=== PATIENT | female | born 1945 | race Caucasian/White ===

== ENCOUNTER 2019-01-04 20:45 | Inpatient (IN) | payer OTHER ==
[~2019-01-04] VITALS: Ht 167.6 cm; Wt 69.9 kg
--- NOTE | 2019-01-04 21:24 | NUR ---
X-RAY DONE AT BEDSIDE.
[2019-01-04 21:33] LABS: BASOPHIL % 0.2 % (0-2); RED CELL DISTRIBUTION WIDTH 13.2 % (11.5-14.5)
[2019-01-04 21:34] LABS: PLATELET COUNT 450 x10^3mcL (130-400)
[2019-01-04 21:37] LABS: CALCIUM 9.2 mg/dL (8.5-10.1); CARBON DIOXIDE 29.3 mmol/L (21-32); CHLORIDE SERUM 101 mmol/L (98-107); CREATININE SERUM 0.7 mg/dL (0.6-1.0); GLUCOSE SERUM 108 mg/dL (74-106); POTASSIUM SERUM 3.8 mmol/L (3.5-5.1); SODIUM SERUM 137 mmol/L (136-145)
[2019-01-04 21:48] LABS: ALBUMIN 2.9 g/dL (3.4-5.0); ALKALINE PHOSPHATASE 83 U/L (46-116); ALT/SGPT 43 U/L (14-59); AST/SGOT 38 U/L (15-37); BILIRUBIN TOTAL 0.41 mg/dL (0.20-1.00); TOTAL PROTEIN, SERUM 6.3 g/dL (6.4-8.2)
--- NOTE | 2019-01-04 22:02 | NUR ---
PHARMACIST CONTACTED ABOUT [facility] AND WILL DELIVER IT TO ED.
--- NOTE | 2019-01-04 22:25 | NUR ---
PT AAOX3, VSS, SPEAKS IN FULL CLEAR SENTENCES, BREATHING EASY AND UNLABORED. ABLE TO MAKE NEEDS KNOWN. MEDICATED PER ERP'S ORDERS. FOLLOWS SIMPLE COMMANDS. RESTING COMFORTABLY IN BED. NO OBVIOUS SIGNS OF DISTRESS AT THIS TIME. WILL CONTINUE TO MONITOR.
--- NOTE | 2019-01-04 23:02 | NUR ---
PT ADMITTED. REPORT GIVEN TO DONAL JONES. OPPORTUNITY GIVEN TO ASK QUESTIONS. PT BEING TRANSPORTED TO FLOOR. PT'S CARE COMPLETED BY THIS RN AT THIS TIME.
[2019-01-04 23:38] LABS: CHOLESTEROL/HDL RATIO 4.4; MAGNESIUM 1.6 mg/dL (1.8-2.4); PHOSPHOROUS 3.5 mg/dL (2.5-4.9)
[2019-01-04] MEDS ORDERED: MELOXICAM7.5 M1 PO (23:59)
[2019-01-04] MEDS ORDERED: ATENOLOL100 MG PO (23:59)
[2019-01-04] MEDS ORDERED: BAYER ASPIRIN C81 MG PO (23:59)
[2019-01-05] VITALS (8 sets, daily range): BP systolic 88–110; BP diastolic 44–62; Ht 167.6 cm; Wt 69.9 kg
[2019-01-05] MEDS ORDERED: PEPCID20 MG PO (00:04)
[2019-01-05] MEDS ORDERED: ZETIA10 M1 PO (00:04)
--- NOTE | 2019-01-05 00:30 | NUR ---
RECEIVED PT FROM ER VIA [facility] ACCOMPANIED WITH NURSE AND EMT, PT SEEN, AAO X 4, VERY VERBALLY RESPONSIVE, DENIES HEADACHE OR DIZZINESS, LUNG SOUNDS CLEAR, NOTED SOB UPON EXERTION, ON O2 2L VIA NC, NO RESP DISTRESS NOTED WHILE RESTING IN BED, ON TELE#28 100% PACED, C/O OF LEFT SIDE CHEST PAIN, PULSES PALPABLE, NO EDEMA NOTED, GENERALIZED WEAKNESS, LLE WEAKNESS DUE TO CVA, PULSES PALPABLE, NO EDEMA NOTED, ABD OBESE WITH ACTIVE BS, NO BM AT THIS TIME, INCONTINENT AT TIMES, SKIN WARM, DRY AND INTACT, ECCHYMOSIS NOTED TO BUE, NO DISTRESS NOTED, WILL KEEP TO MONITOR.
[2019-01-05] MEDS ORDERED: LOV40I SQ (01:05)
[2019-01-05] MEDS ORDERED: LIDODERM51 TOP (01:06)
[2019-01-05] MEDS ORDERED: TRAMADOL HCL50 MG PO (01:16)
--- NOTE | 2019-01-05 02:33 | NUR ---
PT REFUSED BLOOD DRAW. DR. CERVANTES MADE AWARE.
--- NOTE | 2019-01-05 04:17 | NUR ---
PT SEEN SLEEPING IN BED. NO ACUTE DISTRESS NOTED. BREATHING IS EVEN AND UNLABORED. WILL CONTINUE TO MONITOR.
--- NOTE | 2019-01-05 05:36 | NUR ---
PT HAD A BOWEL MOVEMENT. CLEANED UP PT WITH MATTE CUTTER. NO ACUTE DISTRESS NOTED. BREATHING IS EVEN AND UNLABORED. IV IS PATENT AND RUNNING NS AT 70CC/HR. WILL ENDORSE CARE TO DAYSHIFT NURSE.
[2019-01-05 06:21] LABS: BASOPHIL % 0.2 % (0-2); PLATELET COUNT 369 x10^3mcL (130-400)
[2019-01-05 06:39] LABS: CARBON DIOXIDE 28.1 mmol/L (21-32); CHLORIDE SERUM 102 mmol/L (98-107); CREATININE SERUM 0.6 mg/dL (0.6-1.0); GLUCOSE SERUM 89 mg/dL (74-106); MAGNESIUM 1.9 mg/dL (1.8-2.4); POTASSIUM SERUM 3.8 mmol/L (3.5-5.1); SODIUM SERUM 138 mmol/L (136-145)
--- NOTE | 2019-01-05 07:30 | NUR ---
PT ENDORSE TO ME THIS AM. LAYING IN BED RESTING. AA/O X3 PERIODS OF FORGETFULNESS. BREATING EVEN AND UNLABORED ON 2L NC, NO ACUTE RESP DISTRESS OR SOB NOTED. TELE 28 PACED. HR 94. BOWEL SOUNDS ACTIVE IN ALL FOUR QUADS. LAST BM 01/05. GEN WEAKNESS DUE TO L SIDE WEAKNESS/ KNOWS TO CALL FOR ASSIST. IV TO THE LAC INTACT AND PATENT, INFUSING AT 70ML/HR. NO REDNESS OR SWELLING NOTED. CALL LIGHT IN REACH. BED IN LOW POSITION. WILL CONTINUE PLAN OF CARE.
--- NOTE | 2019-01-05 07:55 | NUR ---
Nutrition Note: NSG trigger received for "N/V/D >3 days" on 01/05/19. Pt. admitted with Non-Stemi CP associated with nausea x 1 day per H and P documentations. Does not meet high risk criteria at this time, and will be assessed as low risk with initial assessment due on 01/12/19. Consult RD PRN.
--- NOTE | 2019-01-05 11:12 | NUR ---
DR. BURGOS AT BEDSIDE. MEDICATED PER EMAR FOR GEN BACK PAIN 03/26. WILL CONTINUE PLAN OF CARE.
--- NOTE | 2019-01-05 14:15 | NUR ---
LAB CALLED TROP [phone] DR. KNOX MADE AWARE.
--- NOTE | 2019-01-05 14:20 | NUR ---
PT SITTING IN BED WITH FAMILY AT BEDSIDE. DENIES ANY CP OR PRESSURE. CALL LIGHT IN REACH. BED IN LOW POSITION. WILL CONTINUE PLAN OF CARE.
[2019-01-05] MEDS ORDERED: ATENOLOL25 MG PO (14:32)
--- NOTE | 2019-01-05 17:19 | NUR ---
PT LAYING IN BED RESTING. DENIES ANY CP OR PRESSURE. IV TO THE LAC INTACT AND PATENT, INFUSING AT 70ML/HR, NO REDNESS OR SWELLING NOTED. CALL LIGHT IN REACH. BED IN LOW POSITION. WILL CONTINUE PLAN OF CARE.
[2019-01-05] MEDS ORDERED: TOPROL XL25 MG PO (17:44)
[2019-01-05] MEDS ORDERED: ASPIRIN ADULT L81 M5 PO (17:44)
--- NOTE | 2019-01-05 18:35 | NUR ---
NO ACUTE CHANGES AT THIS TIME/ NO ACUTE RESP DISTRESS OR SOB NOTED. REMAINS ON 2L NC SATING AT 97%. DENIES ANY CP OR PRESSURE. IV TO THE LAC INTACT AND PATENT/ INFUSING AT 70 ML/HR OF NS. CURRENTLY WAITING ON BED FROM [facility] FOR CARDIC CATH TOMORROW. WILL ENDORSE TO INCOMING RN.
--- NOTE | 2019-01-05 19:17 | NUR ---
PT SEEN, RESTING IN BED, ALERT AND ORIENTED X 3 WITH PERIODS OF CONFUSION AND FORGETFUL, DENIES HEADACHE OR DIZZINESS, BREATHING EVEN AND UNLABORED, ON O2 2L VIA NC, LUNG SOUNDS DIMINISHED, MILD SOB ON EXERTION, ON TELE#28 100% PACED, DENIES CHEST PAIN, IVF INFUSING WELL, PULSES PALPABLE, NO EDEMA NOTED, GENERALIZED WEAKNESS, ABD SOFT WITH ACTIVE BS, NO BM AT THIS TIME, INCONTINENT, FALL PRECAUTION IN PLACE, NO DISTRESS NOTED, WILL KEEP TO MONITOR.
--- NOTE | 2019-01-05 19:58 | NUR ---
DR CERVANTES AT BEDSIDE WITH PT PER PT'S REQUEST.
--- NOTE | 2019-01-05 23:27 | NUR ---
ROUNDS MADE, PT ASLEEP AND APPEARS COMFORTABLE, BREATHING EVEN AND UNLABORED ON O2 2L VIA NC WITH NO RESP DISTRESS NOTED, IVF INFUSING WELL, WILL CONTINUE TO MONITOR.
--- NOTE | 2019-01-06 00:30 | NUR ---
PT HAD AN EPISODE OF LOOSE STOOL, GOOD MARVEL-CARE GIVEN.
[2019-01-06 05:19] VITALS: BP 115/48
--- NOTE | 2019-01-06 06:02 | NUR ---
PT AWAKE AND RESTING IN BED, SLEPT ON AND OFF WHOLE NIGHT, IVF INFUSING WELL, INCONTINENT OF URINE AND STOOL, ON TELE#28 100% PACED, NPO AFTER MN FOR 1330 CARDIAC CATH AT [facility], PT IS VERY NEEDY WHILE AWAKE, REPETITVE DURING CONVERSATION, PENDING TRANSFER TO [facility].
--- NOTE | 2019-01-06 06:33 | NUR ---
SPOKE WITH ZEHRA MURRAY REGARDING PT'S TRANSFER STATUS, PER BEN MUIR NO TELE BEDS AVAILABLE AT THIS TIME.
[2019-01-06 07:05] LABS: BASOPHIL % 0.3 % (0-2); PLATELET COUNT 370 x10^3mcL (130-400); RED CELL DISTRIBUTION WIDTH 13.4 % (11.5-14.5)
[2019-01-06 07:12] LABS: CALCIUM 8.4 mg/dL (8.5-10.1); CARBON DIOXIDE 21.8 mmol/L (21-32); CHLORIDE SERUM 104 mmol/L (98-107); CREATININE SERUM 0.5 mg/dL (0.6-1.0); GLUCOSE SERUM 67 mg/dL (74-106); POTASSIUM SERUM 4.8 mmol/L (3.5-5.1); SODIUM SERUM 139 mmol/L (136-145)
--- NOTE | 2019-01-06 07:16 | NUR ---
BEDSIDE HANDOFF REPORT DONE WITH AARON, ALL QUESTIONS ANSWERED AND CONCERNS ADDRESSED.
--- NOTE | 2019-01-06 08:00 | NUR ---
RECEIVED TIMUR AWAKE AND VERY ANXIOUS. SHE DOES HAVE COMPLAINT OF ORAL DRYNESS AND WANTS TO SIP WATER AND SPIT OUT. TIMUR HAS BEEN NPO FOR DIRECT SERVICE PROVIDER TO BE DONE AT [facility] TODAY. SHE HAS BEEN SEEN BY DR BURGOS AND IS FOR TRANSFER TODAY AND BED IS AVAILABLE. PATIENT IS INTERMITTANTLY CONFUSED AND DUE TO THIS AND HER ANXIETY SHE CAN BE A LITTLE NEEDY AND UNSURE OF MANY THINGS. SHE HAS MULTIPLE ALLERGIES AND SHE HAS HISTORY OF 2 CVA AND WITH LEFT SIDED WEAKNESS. PATIENT HAS A IV TO THE [facility] AND HAS BEEN ON NORMAL SALINE AT 70. PATIENT HAS NOTED LABS OF THE TROPONIN ON THE OF 0.563, AND [place] AT 8.4 AND BUN AT 22.0. SKIN IS INTACT AND PATIENT HAS DIMINISHED BUT CLEAR BREATH SOUNDS. PATIENT HAS VITALS AT THIS TIME AT 115/48, 73, 18, 97.7, 96% ON 2 LITERS. PATIENT HAS A PACEMAKER AND HAD ABLATION PREVIOUSLY. NO COMPLAINTS OF PAIN AT THIS TIME. PULES PALPABLE AND PATIENT HAS HAD A BM THIS AM. SHE IS INCONTINENT OF URINE. WILL CONTINUE TO MONITOR.
--- NOTE | 2019-01-06 08:30 | NUR ---
SPOKE WITH THE DAUGHTER AND SHE IS ANXIOSU TO KNOWN IF THE PATIENT IS GOING TO [place] [facility] TODAY. NO ORDER FOR TRANSFER YET NO BED HAD BEEN AVAILABLE THIS AM.
[2019-01-06 09:27] VITALS: BP 125/43
[2019-01-06 09:48] VITALS: BP 115/48
--- NOTE | 2019-01-06 10:10 | NUR ---
CALL RECEIVED FROM [facility] AND OLVIN PELAEZ UP TO TAKE TO [facility] TO UTILITY ASSEMBLER SCHEDULED.
--- NOTE | 2019-01-06 10:45 | NUR ---
GAVE REPORT TO THE STAFF AT [facility] AND PAPERWORK SIGNED AND CD RECIEVED. PAGTIENT IS PREPARED AND WILLING TO BE TRFANSFERED INDICATED. RUBIO TAYLORHS SOME SOB BUT PROBALLY ANXIETY SHE HAS BEEN VERY ANXIOUS AND HAS BEEN WITH MANY CONCERNS AND VERY FRIGHTENED ABOUT THE PENDING SURGERY. PATIENT DAUGHTER CALLED AND DIPIKA GREGORIALL HER BACK PROMISED FOR UPDATE ON TIME OF TRANSFER. PATIENT HAS BEEN STABLE AND O 02 AT 2 LITERS. THE VITALS AT THIS TIME AT 115/48, 96%, 97.2, 73, 18. PATIENT HAS BEEN ON BEDREST AND IV HEPLOCKED FOR THE TRANSFER. RUBIO SEXTON FOR CARDIAC CATHETERIZATION AT [facility] REYNOSO. AWAITING HEALTH CENTER ASSOCIATE AT THIS TIME AND JUST RECIEVED WORD THE HEALTH CENTER ASSOCIATE IS DELAYED SOME.
--- NOTE | 2019-01-06 12:00 | NUR ---
[facility] HAD NOT ARRIVED [facility] PT UP AT THIS TIME. ACCORDING TO ATTENDING NURSE THEY CALLED THAT THERE WAS A DELAY EARLIER IN THE MORNING AND THEY HAD NOT ARRIVED. [facility] CALLED TO INQUIRED ABOUT ETA. STATED THAT THEY HAD BEEN DIVERTED FOR 911 CALLS AND THEY WILL SEND TRANSPORT SOON POSSIBLE, MADE AWARE OF URGENCY D/T PLANNED PROCEDURE. STATED HOPEFULLY WITH IN 30MIN. ATTENDING NURSE MADE AWARE.
--- NOTE | 2019-01-06 12:04 | NUR ---
RECEIVED A CALL FROM [place] THIS STAFF CALLED BACK WITH BARB CODE STATUS AND SHE WAS CALL STAFF BACK ON THIS. THE ETA HAS BEEN CHANGED ND ADVISD THE NURSE OF THIS. THE CHARGE STATES THE PATIENT SHOULD BE PICKED UP WITHIN 30 MINUTES AND HAD CALLED [facility] FOR THE ETA.
--- NOTE | 2019-01-06 12:50 | NUR ---
DR. BURGOS CALLED INQUIRING ABOUT PT NOT ARRIVING. MADE AWARE THAT [facility] HAD DELAYS D/T BEING DIVERTED TO 911 CALLS. [facility] WAS ON SITE LEAVING AT THIS TIME. STATED CASE HAD BEEN BUMPTED, BUT GO AHEAD AND SEND PT OVER.
--- NOTE | 2019-01-06 13:55 | NUR ---
CALLED FAMILY ABOUT THE TRANSFER AND SHE WILL BE FOLLOWING UP WITH THE PATIENT AT [place]. POSSIBLE WILL NEED TO WAIT AGAIN DUE TO THE LATENESS OF THE ARRIVAL OF THE [facility] SERVICE.
== END 2019-01-06 12:57 | disposition short-term general hospital (02) | DRG 280 ==
LOC: ED 20:45 → DU 22:45
PROVIDERS: Emergency Medicine; ADMIT Family Medicine
DX: I21.4 Non-ST elevation (NSTEMI) myocardial infarction (principal); N17.0 Acute kidney failure with tubular necrosis; I69.354 Hemiplegia and hemiparesis following cerebral infarction affecting left non-dominant side; E44.0 Moderate protein-calorie malnutrition; E83.42 Hypomagnesemia; R73.03 Prediabetes; D72.829 Elevated white blood cell count, unspecified; I10 Essential (primary) hypertension; Z66 Do not resuscitate; Z95.0 Presence of cardiac pacemaker; Z68.25 Body mass index [BMI] 25.0-25.9, adult; Z79.899 Other long term (current) drug therapy
CPT/HCPCS: 85378; J1650; J1885; J7030; Q0092